=== PATIENT | male | born 1945 | race Caucasian/White ===

== ENCOUNTER → 2023-03-05 | Outpatient (CLI) | payer MEDICARE ==
[~2023-03-05] MED LIST: ASPI81CH PO; Azelex30 GM TOP; GLUC500 PO
== END | disposition home or self-care (01) ==
LOC: LAB SHORT 09:35 → PLD 09:35
DX: D48.5 Neoplasm of uncertain behavior of skin (principal)
CPT/HCPCS: 88305

== ENCOUNTER → 2023-06-14 | Outpatient (CLI) | payer MEDICARE, BC | END | disposition home or self-care (01) | LOC: LAB SHORT 17:10 → LAB 17:10 | DX: R30.0 Dysuria (principal) | CPT/HCPCS: 87086 ==

== ENCOUNTER 2025-02-15 10:48 | Day surgery (SDC) | payer MEDICARE, BC ==
[~2025-02-15] VITALS: Ht 172.7 cm; Wt 79.2 kg
[~2025-02-15 10:48] MED LIST changes: +ASPIRIN PO; +Balanced Salt Epinephrine Irrigation Solution 500 mL IR SCH; +CARBIDOPA-LEVO1 EA21 PO; +Diazepam 2 MG Tab PO PRN; +FURO20 PO; +GENTEAL TEARS3.5 GM; +Lidocaine HCl/Pf 1% 5 ML VIAL XX SCH; +Moxifloxacin HCL 0.5 MG/0.1 ML 0.4MLSYR RIGHTEYE SCH; +Ondansetron 4 MG SoluTab MM PRN; +PHENYLEPHRINE\\TROPICAMIDE\\TETRACAINE OPHTHALMIC DILATING SOLN RIGHTEYE PRN; +POTA8 PO; +Povidone-Iodine 450 DROP/30 ML Solution ONE; +Povidone-Iodine 450 DROP/30 ML Solution RIGHTEYE SCH; +REFRESH TEARS P10 ML BOTHEYES; +SILVADENE20 G8 TOP; +Tetracaine HCl/Pf 0.5% Opth Soln 4 ml ONE; +diazePAM 5 MG,diazePAM 2 MG PO SCH
[2025-02-15] MEDS ORDERED: Diazepam 5 MG Tab ONE (10:54)
[2025-02-15] MEDS ORDERED: Diazepam 2 MG Tab ONE (10:54)
--- NOTE | 2025-02-15 11:11 | NUR ---
02/15/25 Pearl De La Torre PT STATED HE HAD BREAKFAST AT 0600, ORANGE JUICE AND MUFFIN. DR. HENAO AWARE AND DOCTOR IS OK TO PROCEED WITH TODAY'S EYE CATARACT. PT VITALS WITHIN NORMAL. WILL CONTINUE TO MONITOR.
[2025-02-15] MEDS ORDERED: POTCHL10ER (11:14)
[2025-02-15] MEDS ORDERED: VITAMIN B121000 MCG PO (11:15)
[2025-02-15] MEDS ORDERED: CITRICAL (11:16)
--- NOTE | 2025-02-15 12:03 | NUR ---
02/15/25 1203 Michelle Shi 59, 100%, 135/70 PATIENT ALERT, APPROPRIATE AND WITHOUT S/S DISTRESS
[2025-02-15 12:19] VITALS: BP 135/79
== END 2025-02-15 12:35 | disposition home or self-care (01) ==
LOC: ORSCSDS 10:48
PROVIDERS: Student in an Organized Health Care Education/Training Program
PROC: 08RJ3JZ Replacement of Right Lens with Synthetic Substitute, Percutaneous Approach (ICD-10-PCS; principal; 2025-02-15 12:00)
DX: H25.811 Combined forms of age-related cataract, right eye (principal); H04.123 Dry eye syndrome of bilateral lacrimal glands; H21.81 Floppy iris syndrome; H01.006 Unspecified blepharitis left eye, unspecified eyelid; H01.003 Unspecified blepharitis right eye, unspecified eyelid; Z79.82 Long term (current) use of aspirin; Z79.899 Other long term (current) drug therapy
CPT/HCPCS: A9270; V2632

== ENCOUNTER 2025-03-01 10:38 | Day surgery (SDC) | payer MEDICARE, BC ==
[~2025-03-01] VITALS: Ht 172.7 cm; Wt 77.3 kg
[~2025-03-01 10:38] MED LIST changes: +CITRICAL; +Moxifloxacin HCL 0.5 MG/0.1 ML 0.4MLSYR LEFTEYE SCH; -Moxifloxacin HCL 0.5 MG/0.1 ML 0.4MLSYR RIGHTEYE SCH; +PHENYLEPHRINE\\TROPICAMIDE\\TETRACAINE OPHTHALMIC DILATING SOLN LEFTEYE PRN; -PHENYLEPHRINE\\TROPICAMIDE\\TETRACAINE OPHTHALMIC DILATING SOLN RIGHTEYE PRN; +POTCHL10ER; +Povidone-Iodine 450 DROP/30 ML Solution LEFTEYE SCH; -Povidone-Iodine 450 DROP/30 ML Solution RIGHTEYE SCH; +VITAMIN B121000 MCG PO
[2025-03-01] MEDS ORDERED: Diazepam 2 MG Tab ONE (10:47)
[2025-03-01] MEDS ORDERED: Diazepam 5 MG Tab ONE (10:48)
--- NOTE | 2025-03-01 11:17 | NUR ---
03/01/25 1117 Alex Shen VALIUM 7 MG PO ADMINISTERED AT 1100. PT REPORTS ANXIETY LEVEL IS 3/10. TETRACAINE ADMINISTERED AT 1103, PLEDGET PLACED AT 1105.
--- NOTE | 2025-03-01 11:38 | NUR ---
03/01/25 1138 Tresa Farr VITALS AT 1138 BP: 135/67 P: 52 O2: 99% 10 LITERS BLOW BY OXYGEN
[2025-03-01 11:57] VITALS: BP 126/85
== END 2025-03-01 12:08 | disposition home or self-care (01) ==
LOC: ORSCSDS 10:38
PROVIDERS: Student in an Organized Health Care Education/Training Program
PROC: 08RK3JZ Replacement of Left Lens with Synthetic Substitute, Percutaneous Approach (ICD-10-PCS; principal; 2025-03-01 12:00)
DX: H25.812 Combined forms of age-related cataract, left eye (principal); H21.81 Floppy iris syndrome; Z96.1 Presence of intraocular lens; H04.123 Dry eye syndrome of bilateral lacrimal glands; H01.006 Unspecified blepharitis left eye, unspecified eyelid; H01.003 Unspecified blepharitis right eye, unspecified eyelid; Z79.82 Long term (current) use of aspirin; Z79.899 Other long term (current) drug therapy
CPT/HCPCS: A9270; V2632

== ENCOUNTER → 2025-06-07 | Outpatient (CLI) | payer MEDICARE ==
[~2025-06-07] MED LIST changes: -Balanced Salt Epinephrine Irrigation Solution 500 mL IR SCH; -Diazepam 2 MG Tab PO PRN; -Lidocaine HCl/Pf 1% 5 ML VIAL XX SCH; -Moxifloxacin HCL 0.5 MG/0.1 ML 0.4MLSYR LEFTEYE SCH; -Ondansetron 4 MG SoluTab MM PRN; -PHENYLEPHRINE\\TROPICAMIDE\\TETRACAINE OPHTHALMIC DILATING SOLN LEFTEYE PRN; -Povidone-Iodine 450 DROP/30 ML Solution LEFTEYE SCH; -Povidone-Iodine 450 DROP/30 ML Solution ONE; -Tetracaine HCl/Pf 0.5% Opth Soln 4 ml ONE; -diazePAM 5 MG,diazePAM 2 MG PO SCH
[2025-06-07 14:26] LABS: Source, Urine Clean Catch
[2025-06-07 15:21] LABS: Bilirubin, Urine Neg (Neg); Color, Urine Yellow (P-Yellow); Glucose Qualitative, Urine Neg (Neg); Ketones, Urine Neg (Neg); Leukocyte Esterase, Urine 1+ (Neg); Protein, Urine Neg (Neg); Specific Gravity, Urine 1.020 (1.003-1.022); Urobilinogen, Urine NORM (Normal)
== END ==
LOC: LAB 14:24 → LAB SHORT 14:24
PROVIDERS: Internal Medicine
DX: R30.0 Dysuria (principal)
CPT/HCPCS: 81001; 87086

== ENCOUNTER → 2025-06-20 | Outpatient (CLI) | payer MEDICARE ==
[2025-06-20 13:48] LABS: Source, Urine Clean Catch
[2025-06-20 14:50] LABS: Bilirubin, Urine Neg (Neg); Color, Urine Yellow (P-Yellow); Glucose Qualitative, Urine Neg (Neg); Ketones, Urine Neg (Neg); Leukocyte Esterase, Urine Neg (Neg); Protein, Urine 1+ (Neg); Specific Gravity, Urine 1.020 (1.003-1.022); Urobilinogen, Urine NORM (Normal)
== END ==
LOC: EDSTATUS 08:27 → LAB SHORT 13:46 → LAB 13:46
PROVIDERS: Internal Medicine
DX: R30.0 Dysuria (principal)
CPT/HCPCS: 81001; 87086